=== PATIENT | female | born 1970 | race Caucasian/White ===

== ENCOUNTER 2017-11-24 12:43 | Emergency (ER) | payer BC ==
[~2017-11-24] VITALS: Ht 154.9 cm; Wt 71.2 kg
[~2017-11-24 12:43] MED LIST: CYCLOBENZAPRINE5 M3 PO; EFFEXOR XR37.5 M1 PO; Motrin,Rufen800 MG PO; TRAZODONE50 MG PO
[2017-11-24 13:20] LABS: BASO % 0.8 % (0.0-1.0); EOS # 0.1 10*3/uL (0.0-0.4); EOS % 2.5 % (1.0-4.0); HEMATOCRIT 29.5 % (37.0-47.0); HEMOGLOBIN 7.9 g/dl (12.0-16.0); LYMPH # 1.4 10*3/uL (1.3-4.4); LYMPH % 28.2 % (27.0-41.0); MEAN CORPUSCULAR HGB 20.4 pg (27.0-31.0); MEAN CORPUSCULAR HGB CONC 26.8 g/dl (33.0-37.0); MEAN PLATELET VOLUME 9.1 fl (9.6-12.3); MONO # 0.5 10*3/uL (0.1-1.0); MONO % 8.8 % (3.0-9.0); NEUT # 3.1 10*3/uL (2.3-7.9); NEUT % 59.7 % (47.0-73.0); PLATELET COUNT AUTOMATED 479 10*3/uL (130-400); RED BLOOD COUNT 3.88 10*6/uL (4.10-5.10); RED CELL DISTRI WIDTH 28.1 % (0-14.5); WHITE BLOOD COUNT 5.1 10*3/uL (4.8-10.8)
[2017-11-24 13:39] LABS: ALBUMIN 3.8 gm/dl (3.1-4.5); ALKALINE PHOSPHATASE 88 U/L (45-117); BUN 14 mg/dl (7-24); CHLORIDE 116 mmol/L (98-107); POTASSIUM 3.6 mmol/L (3.5-5.1); SGOT/AST 16 IU/L (3-35); SGPT/ALT 18 U/L (12-78); SODIUM 145 mmol/L (136-145); TOTAL PROTEIN 7.2 gm/dL (6.4-8.2)
[2017-11-24] MEDS ORDERED: CLINDAMYCIN HC300 MG PO (15:23)
[2017-11-24] MEDS ORDERED: NORCO 5-325 TA1 EACH PO (15:23)
== END 2017-11-24 15:31 | disposition home or self-care (01) ==
LOC: ED 12:43
PROVIDERS: Registered Nurse
DX: D50.9 Iron deficiency anemia, unspecified (principal); K02.9 Dental caries, unspecified; H92.02 Otalgia, left ear; Z79.899 Other long term (current) drug therapy